=== PATIENT | male | born 1960 | race Caucasian/White ===

== ENCOUNTER 2023-11-20 12:34 | Inpatient (IN) | payer OTHER ==
[2023-11-20 13:26] VITALS: BMI 18.8
[2023-11-20] MEDS ORDERED: NALOXONE (NARCAN) HCL 4 MG/0.1 ML SPRAY NS PRN (13:53)
[2023-11-20] MEDS ORDERED: IBUPROFEN 400 MG TABLET (FP) PO PRN (13:53)
[2023-11-20] MEDS ORDERED: LORazepam 1 MG TABLET PO PRN (13:53)
[2023-11-20] MEDS ORDERED: BENZOCAINE/MENTHOL (CHLORASEPTIC ) LOZENGE MM PRN (13:53)
[2023-11-20] MEDS ORDERED: LOPERAMIDE HCL 2 MG CAPSULE PO PRN (13:53)
[2023-11-20] MEDS ORDERED: guaiFENesin 600 MG TABLET.ER (FP) PO PRN (13:53)
[2023-11-20] MEDS ORDERED: NALOXONE HCL 0.4 MG/ML VIAL IM PRN (13:53)
[2023-11-20] MEDS ORDERED: MAG HYDROX/AL HYDROX/SIMETH 30 ML UNIT-DOSE CUP PO PRN (13:53)
[2023-11-20] MEDS ORDERED: NICOTINE POLACRILEX 4 MG GUM BUC PRN (13:53)
[2023-11-20] MEDS ORDERED: BISMUTH SUBSALICYLATE 262 MG/15 ML BTL PO PRN (13:53)
[2023-11-20] MEDS ORDERED: POLYETHYLENE GLYCOL (HEALTHYLAX) 3350 17 GM PACKET PO PRN (13:53)
[2023-11-20] MEDS ORDERED: MAGNESIUM HYDROX 2400MG/30ML ORAL SUSPENSION 30 ML CUP PO PRN (13:53)
[2023-11-20] MEDS ORDERED: BENZONATATE 200 MG CAPSULE PO PRN (13:53)
[2023-11-20] MEDS ORDERED: NICOTINE 21 MG/24 HOURS TOPICAL PATCH TD PRN (13:53)
[2023-11-20] MEDS ORDERED: amLODIPine BESYLATE 5 MG TABLET (FP) ONE (15:30)
[2023-11-20] MEDS: amLODIPine BESYLATE 5 MG TABLET (FP) PO ONE (15:32)
[2023-11-20] MEDS ORDERED: LORazepam 2 MG TABLET PO SCH (17:00)
[2023-11-20] MEDS: ACETAMINOPHEN 325 MG TABLET (FP) PO PRN (17:01)
[2023-11-20] MEDS: cloNIDine HCL 0.1 MG TABLET PO PRN (17:01)
[2023-11-20] MEDS: LORazepam 1 MG TABLET PO SCH (17:01)
[2023-11-20] MEDS: THIAMINE 100 MG TABLET PO SCH (22:28)
[2023-11-20] MEDS: MELATONIN 5 MG TABLETS PO SCH (22:28)
[2023-11-20] MEDS: IBUPROFEN 600 MG TABLET (FP) PO PRN (22:29)
[2023-11-20] MEDS: ALBUTEROL SO4 HFA INHALER IH PRN (22:31)
[2023-11-21] MEDS: methaDONE 40 MG, methaDONE 30 MG PO SCH (05:59)
[2023-11-21] MEDS ORDERED: methaDONE HCL 10 MG TABLET PO SCH (06:00)
[2023-11-21] MEDS: PRENATAL VITAMINS W/ FOLIC ACID TABLET (FP) PO SCH (10:41)
[2023-11-21] MEDS: FLUTICASONE/UMECLIDIN/VILANTER(200-62.5-25 TRELEGY ELLIPTA) INAHLER IH SCH (10:41)
[2023-11-21] MEDS: ASPIRIN 81 MG CHEWABLE TABLETS PO SCH (10:42)
[2023-11-21 10:43] LABS: HEMATOCRIT 42.9 % (35.4-49); HEMOGLOBIN 14.4 GM/dL (11.7-16.9); MCH 35.3 pg (25.7-33.7); MCHC 33.5 g/dl (32.0-35.9); MEAN CELL VOLUME 105.2 fl (80-96); PLATELET COUNT 225 10^3/uL (134-434); RBC 4.07 M/mm3 (4.00-5.60); RDW 14.2 % (11.9-15.9); WHITE BLOOD COUNT 7.2 K/mm3 (4.0-10.0)
[2023-11-21] MEDS: amLODIPine BESYLATE 2.5 MG TABLET (FP) PO SCH (10:43)
[2023-11-21 10:51] LABS: CHLORIDE 103 mmol/L (98-107); SODIUM 141 mmol/L (136-145)
[2023-11-21 10:58] LABS: CALCIUM 9.8 mg/dL (8.5-10.1)
[2023-11-21 10:59] LABS: ALBUMIN 3.5 g/dl (3.4-5.0); ANION GAP 6 mmol/L (4-13); CO2 32 mmol/L (21-32); GLUCOSE,RANDOM 120 mg/dL (74-106)
[2023-11-21 11:02] LABS: SGOT/AST 20 U/L (15-37); SGPT/ALT 23 U/L (13-61)
[2023-11-21 11:03] LABS: BILIRUBIN,TOTAL 0.8 mg/dL (0.2-1)
[2023-11-21 11:04] LABS: TOT PROT 6.1 g/dl (6.4-8.2)
[2023-11-21 11:05] LABS: ALK PHOS 128 U/L (45-117)
[2023-11-22] MEDS: LORazepam 1 MG TABLET PO SCH (05:45)
[2023-11-23] MEDS: LORazepam 0.5 MG TABLET PO SCH (05:30)
[2023-11-23 20:33] VITALS: RESP 18
[2023-11-24] MEDS: LORazepam 0.5 MG TABLET PO ONE (05:17)
[2023-11-24 06:38] VITALS: BP 144/90; PULSE 76; TEMP 98.6
== END 2023-11-24 08:56 | disposition home or self-care (01) | DRG 773 ==
LOC: YASAS 12:34 → Y3N 14:29
PROVIDERS: ADMIT Allergy & Immunology; ATTEND Surgery
PROC: HZ2ZZZZ Detoxification Services for Substance Abuse Treatment (ICD-10-PCS; principal; 2023-11-20)
DX: F10.230 Alcohol dependence with withdrawal, uncomplicated (principal); F11.20 Opioid dependence, uncomplicated; F14.10 Cocaine abuse, uncomplicated; F17.210 Nicotine dependence, cigarettes, uncomplicated; F41.9 Anxiety disorder, unspecified; I10 Essential (primary) hypertension; J44.9 Chronic obstructive pulmonary disease, unspecified; D49.7 Neoplasm of unspecified behavior of endocrine glands and other parts of nervous system
CPT/HCPCS: 36415; 80053; 80305; 80307; 85027; 86780; 93005; 93010